=== PATIENT | female | born 1960 | race Caucasian/White ===

== ENCOUNTER 2016-03-12 11:29 | Outpatient (CLI) | payer OTHER | END 2016-03-12 11:30 | disposition home or self-care (01) | DX: C21.0 Malignant neoplasm of anus, unspecified (principal) ==

== ENCOUNTER 2017-05-21 15:14 | Outpatient (CLI) | payer OTHER | END 2017-05-21 15:15 | disposition EMS.NT | LOC: EMS 15:14 | PROVIDERS: ATTEND Surgery | DX: S61.214A Laceration without foreign body of right ring finger without damage to nail, initial encounter (principal); S61.212A Laceration without foreign body of right middle finger without damage to nail, initial encounter; S61.210A Laceration without foreign body of right index finger without damage to nail, initial encounter; W54.0XXA Bitten by dog, initial encounter ==

== ENCOUNTER 2017-05-21 16:13 | Emergency (ER) | payer OTHER ==
[2017-05-21 16:34] VITALS: BP 153/89
[2017-05-21] MEDS ORDERED: CIPROFLOXACIN 250 MG TABLET PO STA (16:42)
[2017-05-21] MEDS ORDERED: CLINDAMYCIN 150 MG CAPSULE PO STA (16:42)
[2017-05-21] MEDS ORDERED: BUFFERED LIDOCAINE 10 ML SYRINGE SUBQ STA (16:42)
[2017-05-21] MEDS ORDERED: HYDROcod/ACETAM 5/325 MG TABLET PO STA (16:42)
--- NOTE | 2017-05-21 16:44 | ED Physician Documentation ---
PD HPI UPPER EXT INJURY - Stated complaint Stated Complaint: DOG BITE R HAND - Chief complaint Chief Complaint: Laceration - History obtained from History obtained from: Patient - History of Present Illness Location: Other (56-year-old right-handed woman who is allergic to tetanus and penicillin was bitten breaking up a dog fight to the right hand earlier today. Pain is moderate. No injuries other than the right hand.) Review of Systems Constitutional: reports: Reviewed and negative Cardiac: reports: Reviewed and negative Respiratory: reports: Reviewed and negative PD PAST MEDICAL HISTORY - Present Medications Home Medications: Ambulatory Orders Medication Instructions Recorded Confirmed Ciprofloxacin HCl [Cipro] 500 mg PO BID #10 tablet 05/21/17 Clindamycin [Cleocin] 300 mg PO Q6H 5 Days capsule 05/21/17 HYDROcod/ACETAM 5/325 [Sycamore 5/325] 1 - 2 ea PO Q6H PRN #15 tablet 05/21/17 - Allergies Allergies/Adverse Reactions: Allergies Allergy/AdvReac Type Severity Reaction Status Date / Time Penicillins Allergy Unknown Verified 05/21/17 16:35 Tetanus Vaccines and Toxoid Allergy Edema Verified 05/21/17 16:35 PD ED PE NORMAL - Vitals Vital signs reviewed: Yes - General General: Alert and oriented X 3, No acute distress - Extremities Extremities: Other (Multiple puncture wounds around the right hand, there is a laceration on the radial side of the second digit just distal to the MCP with normal neurovascular status distal this. There are multiple puncture wounds of the fingers especially second through fourth with a through and through puncture at the level of the nailbed of the fourth digit. She has limited range of motion because of tightness.) - Neuro Neuro: Alert and oriented X 3, Normal speech Results - Vitals Vitals: Vital Signs - 24 hr 05/21/17 16:29 Temperature 37.0 C Heart Rate 89 Respiratory 20 Rate Blood Pressure 153/89 H O2 Saturation 97 Oxygen O2 Source Room air Procedures - Laceration (location) R 2nd finger Length in cm: 2 Wound type: Linear Neurovascular status: Sensory intact, Motor intact, Vascular intact Anesthesia: Lidocaine 1%, With bicarb Wound Preparation: Chlorhexadine, Irrigated copiously NS Skin layer closure: Nylon, Interrupted, Size #-0 - enter number (4-0), Sutures - enter # (3) Other: Patient tolerated well, No complications. No: Tetanus UTD, Tetanus booster given Complexity: Simple PD MEDICAL DECISION MAKING - ED course ED course: Multiple punctures and dog bites of the right hand, the one on the side of the second finger required closure, the others did not. All the wounds were thoroughly irrigated after local anesthetic and the largest wound was closed. There is no evidence of neurovascular or tendon compromise. Departure - Departure Disposition: 01 Home, Self Care Clinical Impression: Dog bite Qualifiers: Encounter type: initial encounter Qualified Code(s): W54.0XXA - Bitten by dog, initial encounter Condition: Good Record reviewed to determine appropriate education?: Yes Instructions: ED Bite Animal General, ED Laceration All Prescriptions: Ciprofloxacin HCl [Cipro] 500 mg PO BID #10 tablet Clindamycin [Cleocin] 300 mg PO Q6H 5 Days capsule HYDROcod/ACETAM 5/325 [Sycamore 5/325] 1 - 2 ea PO Q6H PRN #15 tablet PRN Reason: Pain Comments: Come back for any signs of infection which would include: Redness, swelling, drainage, increased pain, or fevers. Follow-up with your physician in 14 days for suture removal. Your blood pressure was elevated today on check into the emergency department. This does not mean that you have hypertension, it is a common phenomenon to come to the emergency department and have elevated blood pressure. I recommend that you see your primary care physician within the week to have it rechecked when you are feeling better. Do not drink or drive while taking narcotic pain medication. Note that many narcotic pain relievers also contain Tylenol/acetaminophen. Please ensure that your total dose of acetaminophen from all sources does not exceed 3 g (3000 mg) per day. You may get constipated while on this medication. Take a stool softener such as Colace twice a day while you are on it. Also add an [id number] laxative such as senna or MiraLAX on any day that you do not have a bowel movement. If you received a narcotic pain medication or sedative while in the emergency department, do not drive for the next 24 hours.
--- NOTE | 2017-05-21 17:18 | XRAY Report ---
EXAM: RIGHT HAND RADIOGRAPHY EXAM DATE: 05/21/2017 05:02 PM. CLINICAL HISTORY: Right hand injury. Dog bite. COMPARISON: None. TECHNIQUE: 3 views. FINDINGS: Bones: No fracture or bone lesion. Joints: Normal alignment. Soft Tissues: Soft tissue swelling and emphysema near the base of the second digit. No radiopaque for eign body. IMPRESSION: Soft tissue injury without underlying acute bony abnormality or radiographically evident retained foreign body. [facility] Referring Provider Line: [phone] SITE ID: [id number]
== END 2017-05-21 17:20 | disposition home or self-care (01) ==
LOC: ED 16:13
DX: S61.210A Laceration without foreign body of right index finger without damage to nail, initial encounter (principal); S61.431A Puncture wound without foreign body of right hand, initial encounter; W54.0XXA Bitten by dog, initial encounter; Z88.0 Allergy status to penicillin; R03.0 Elevated blood-pressure reading, without diagnosis of hypertension
CPT/HCPCS: 12001; 73130; 99283; A9270